=== PATIENT | female | born 1970 ===

== ENCOUNTER 2020-09-06 12:30 | Inpatient (IN) | payer OTHER ==
[~2020-09-06] VITALS: Ht 157.5 cm; Wt 55.8 kg
== END 2020-10-01 13:33 | disposition home or self-care (01) | DRG 743 ==
LOC: SURH 09-08 11:00 → OB/GYN 09-29 05:30 → O/R 09-29 05:30 → SURH 09-29 07:00 → OB/GYN 09-29 14:08
PROVIDERS: ADMIT Specialist; ATTEND Specialist
PROC: 0UB74ZZ Excision of Bilateral Fallopian Tubes, Percutaneous Endoscopic Approach (ICD-10-PCS; 2020-09-29)
PROC: 0UT94ZZ Resection of Uterus, Percutaneous Endoscopic Approach (ICD-10-PCS; principal; 2020-09-29 07:00)
DX: N80.0 Endometriosis of uterus (principal); N72 Inflammatory disease of cervix uteri; D25.9 Leiomyoma of uterus, unspecified; N83.8 Other noninflammatory disorders of ovary, fallopian tube and broad ligament